=== PATIENT | male | born 1985 | race Two or more races ===

== ENCOUNTER 2020-10-17 15:42 | Emergency (ER) | payer OTHER ==
[2020-10-17 15:55] VITALS: BP 135/81; PULSE 104; TEMP 98.2; BMI 32.3
[2020-10-17] MEDS ORDERED: IBUPROFEN 600 MG TABLET (FP) PO ONE ×2 (15:59→16:00)
== END 2020-10-17 17:16 | disposition home or self-care (01) ==
LOC: JERFT 15:42
DX: S93.402A Sprain of unspecified ligament of left ankle, initial encounter (principal); X50.9XXA Other and unspecified overexertion or strenuous movements or postures, initial encounter
CPT/HCPCS: 73610-TC-LT-FY; 73630-TC-LT; 99283-25

== ENCOUNTER 2023-02-20 08:36 | Emergency (ER) | payer OTHER ==
[2023-02-20 09:03] VITALS: BP 131/86; PULSE 85; RESP 16; TEMP 98.4; BMI 25.2
== END 2023-02-20 10:10 | disposition home or self-care (01) ==
LOC: JERFT 08:36 → JER 08:36 → JERFT 10:10
DX: M79.642 Pain in left hand (principal); R22.32 Localized swelling, mass and lump, left upper limb; W23.0XXA Caught, crushed, jammed, or pinched between moving objects, initial encounter
CPT/HCPCS: 73110-TC-LT-FY; 73130-TC-LT-FY; 99283-25